=== PATIENT | male | born 1970 | race Caucasian/White ===

== ENCOUNTER 2019-07-18 12:30 | Emergency (ER) | payer MEDICARE ==
[~2019-07-18] VITALS: Ht 188 cm; Wt 95.3 kg
[~2019-07-18 12:30] MED LIST: BACL10TA PO; HYDR-531 PO; OMEP20CA74 PO
[2019-07-18 12:36] VITALS: BP 137/85
== END 2019-07-18 14:16 | disposition home or self-care (01) ==
LOC: ER 12:30
DX: M79.662 Pain in left lower leg (principal); R42 Dizziness and giddiness; R07.9 Chest pain, unspecified; Z91.040 Latex allergy status
CPT/HCPCS: 93971

== ENCOUNTER 2021-06-06 15:13 | Emergency (ER) | payer MEDICARE ==
[~2021-06-06] VITALS: Ht 188 cm; Wt 93.0 kg
[2021-06-06 17:15] VITALS: BP 135/91
[2021-06-06] MEDS ORDERED: cefTRIAXone SOD 1,000 MG VL IM ONE (17:30)
== END 2021-06-06 18:14 | disposition home or self-care (01) ==
LOC: ER 15:13
DX: A46 Erysipelas (principal); Z79.899 Other long term (current) drug therapy; Z91.040 Latex allergy status
CPT/HCPCS: 93971; 96372; 99284; J0696